=== PATIENT | female | born 1935 | race Caucasian/White ===

== ENCOUNTER → 2017-06-15 | Outpatient (CLI) | payer OTHER | LOC: HYPER 07:47 | DX: T81.89XA Other complications of procedures, not elsewhere classified, initial encounter (principal); L59.8 Other specified disorders of the skin and subcutaneous tissue related to radiation; Z85.3 Personal history of malignant neoplasm of breast; Y92.89 Other specified places as the place of occurrence of the external cause; Y83.8 Other surgical procedures as the cause of abnormal reaction of the patient, or of later complication, without mention of misadventure at the time of the procedure; Y84.2 Radiological procedure and radiotherapy as the cause of abnormal reaction of the patient, or of later complication, without mention of misadventure at the time of the procedure ==